=== PATIENT | male | born 1985 | race Caucasian/White ===

== ENCOUNTER 2017-04-02 21:54 | Emergency (ER) | payer SELFPAY ==
[~2017-04-02] VITALS: Ht 172.7 cm; Wt 76.7 kg
[2017-04-02 22:08] VITALS: BP 105/66
[2017-04-02] MEDS ORDERED: FLUORESCEIN OPHTHALMIC 1 MG STRIP ONE (22:38)
[2017-04-02] MEDS ORDERED: DIPH,PERTUSS(ACELL),TET VAC/PF 0.5 ML IM-VACC ONE ×2 (22:41→23:00)
== END 2017-04-02 22:55 | disposition home or self-care (01) ==
LOC: ED 22:40
DX: S05.02XA Injury of conjunctiva and corneal abrasion without foreign body, left eye, initial encounter (principal); Z23 Encounter for immunization; F17.210 Nicotine dependence, cigarettes, uncomplicated; X58.XXXA Exposure to other specified factors, initial encounter; Y93.89 Activity, other specified; Y99.8 Other external cause status; Y92.89 Other specified places as the place of occurrence of the external cause
CPT/HCPCS: 90471; 90715

== ENCOUNTER 2018-08-10 12:12 | Emergency (ER) | payer MEDICAID ==
[~2018-08-10] VITALS: Ht 172.7 cm; Wt 73.5 kg
[2018-08-10 12:15] VITALS: BP 111/69
== END 2018-08-10 13:00 | disposition home or self-care (01) ==
LOC: ED 12:40
DX: H01.004 Unspecified blepharitis left upper eyelid (principal); H00.024 Hordeolum internum left upper eyelid; F17.210 Nicotine dependence, cigarettes, uncomplicated
CPT/HCPCS: 99283

== ENCOUNTER 2020-06-16 09:42 | Emergency (ER) | payer MEDICAID, OTHER ==
[~2020-06-16] VITALS: Ht 172.7 cm; Wt 75.2 kg
--- NOTE | 2020-06-16 10:25 | NUR ---
PT C/O DENTAL PAIN AND SWELLING LOWER MOUTH
--- NOTE | 2020-06-16 11:06 | NUR ---
PT EDUCATED ON MEDICATIONS, FOLLOW UP WITH DENTIST, AND DISCHARGE EDUCATIONS. PT STATED HE HAD NO QUESTIONS AND UNDERSTOOD THE TEACHING.
[2020-06-16 11:07] VITALS: BP 140/89
--- NOTE | 2020-06-16 11:10 | NUR ---
PT AMBULATED TO D/C DESK, STEADY GAIT.
== END 2020-06-16 11:13 | disposition home or self-care (01) ==
LOC: ED 10:11
DX: K02.9 Dental caries, unspecified (principal); F17.210 Nicotine dependence, cigarettes, uncomplicated
CPT/HCPCS: 99283; 99406

== ENCOUNTER 2021-01-22 21:55 | Emergency (ER) | payer OTHER ==
[~2021-01-22] VITALS: Ht 172.7 cm; Wt 78.1 kg
[2021-01-22 21:59] VITALS: BP 128/74
--- NOTE | 2021-01-22 22:10 | NUR ---
PT HAS C/O RIGHT FOOT PAIN AFTER STEPPING ON BOARD WITH NAILS IN IT. PT HAS 3 SMALL WOUNDS TO BOTTOM OF RIGHT FOOT. PT A/OX4 WITH UNLABORED EQUAL BREATHS. PT ON MONITOR WITH PT VSS.
[2021-01-22] MEDS ORDERED: HYDROcodone/APAP 5/325 TABLET ONE (22:54)
[2021-01-22] MEDS ORDERED: DIPH,PERTUSS(ACELL),TET VAC/PF 0.5 ML IM-VACC ONE ×2 (22:55→23:00)
[2021-01-22] MEDS ORDERED: HYDROcodone/APAP 5/325 TABLET PO ONE (23:00)
== END 2021-01-23 00:32 | disposition home or self-care (01) ==
LOC: ED 01-23 00:27
DX: S91.331A Puncture wound without foreign body, right foot, initial encounter (principal); F17.210 Nicotine dependence, cigarettes, uncomplicated; X58.XXXA Exposure to other specified factors, initial encounter; Y93.89 Activity, other specified; Y92.009 Unspecified place in unspecified non-institutional (private) residence as the place of occurrence of the external cause; Y99.8 Other external cause status
CPT/HCPCS: 90471; 90715